=== PATIENT | female | born 1950 | race Two or more races ===

== ENCOUNTER 2017-08-15 20:01 | Emergency (ER) | payer OTHER ==
[~2017-08-15] VITALS: Ht 149.9 cm; Wt 49.4 kg
[2017-08-15 20:56] LABS: Basophils # (auto) 0.1 uL; Basophils % (auto) 0.8 % (0.0-2.0); Eosinophils # (auto) 0.1 uL; Eosinophils % (auto) 1.1 % (0.0-7.0); Hematocrit 41.3 % (36.0-46.0); Hemoglobin 14.4 g/dL (12.2-16.2); Lymphocytes # (auto) 2.4 uL; Lymphocytes % (auto) 36.1 % (10.0-50.0); Mean Corpuscular Hemoglobin 31.7 pg (28.0-32.0); Mean Corpuscular Hgb Conc. 34.9 g/dL (32.0-36.0); Mean Corpuscular Volume 90.7 fL (80.0-100.0); Mean Platelet Volume 6.6 fL (6.9-10.8); Monocytes # (auto) 0.5 uL; Monocytes % (auto) 7.1 % (0.0-12.0); Neutrophils # (auto) 3.7 uL; Neutrophils % (auto) 54.9 % (37.0-80.0); Nucleated Red Blood Cells % 0.1 %; Platelet Count (auto) 245 10^3/uL (140-450); Red Cell Distribution Width 12.4 % (11.8-14.3); White Blood Cell 6.8 10^3/uL (4.4-10.8)
[2017-08-15 21:12] LABS: Urine Bilirubin Negative (Negative); Urine Blood 1+ /uL (Negative); Urine Color Yellow (Yellow); Urine Glucose 4+ mg/dL (Normal); Urine Ketone Negative (Negative); Urine Nitrite Negative (Negative); Urine RBC 2 /hpf (0 - 4); Urine Squamous Epithelial Cell FEW /hpf (<5); Urine Urobilinogen Normal (Negative); Urine pH 6.5 (5.0-8.0)
[2017-08-15 21:23] LABS: Albumin 3.5 g/dL (3.4-5.0); BUN/Creatinine Ratio 14.5; Bilirubin, Total 0.5 mg/dL (0.2-1.0); Calcium 8.7 mg/dL (8.5-10.1); Potassium 4.1 mmol/L (3.5-5.1); Total Protein 7.6 g/dL (6.4-8.2)
[2017-08-16] MEDS ORDERED: HYDROmorphone HCL 2 MG/ML VL IV ONE (04:30)
[2017-08-16] MEDS ORDERED: ONDANSETRON HCL 4 MG/2 ML VIAL IV ONE (04:30)
[2017-08-16] MEDS ORDERED: SODIUM CHLORIDE 0.9% 1,000 ML IV ONE (04:45)
[2017-08-16 07:51] VITALS: BP 126/77
== END 2017-08-16 08:59 | disposition home or self-care (01) ==
LOC: ER 20:01
DX: N39.0 Urinary tract infection, site not specified (principal); R33.9 Retention of urine, unspecified; E11.9 Type 2 diabetes mellitus without complications; E78.5 Hyperlipidemia, unspecified; Z90.49 Acquired absence of other specified parts of digestive tract
CPT/HCPCS: 36415; 51702; 74176; 80053; 81001; 85025; 96361; 96374; 96375; 99285; J7030

== ENCOUNTER → 2022-07-03 | Outpatient (CLI) | payer OTHER ==
[2022-07-03 08:12] LABS: Basophils # (auto) 0 10 ^3/uL (0-0.2); Basophils % (auto) 0.6 % (0.0-2.0); Eosinophils # (auto) 0.1 10 ^3/uL (0-0.8); Eosinophils % (auto) 1.2 % (0.0-7.0); Hematocrit 38.6 % (36.0-46.0); Hemoglobin 13.5 g/dL (12.2-16.2); Lymphocytes # (auto) 1.8 10 ^3/uL (0.4-5.4); Lymphocytes % (auto) 33.4 % (10.0-50.0); Mean Corpuscular Hemoglobin 31.3 pg (28.0-32.0); Mean Corpuscular Volume 89.6 fL (80.0-100.0); Monocytes # (auto) 0.4 10 ^3/uL (0-1.3); Monocytes % (auto) 8.4 % (0.0-12.0); Neutrophils % (auto) 56.4 % (37.0-80.0); Nucleated Red Blood Cells % 0.1 %; Red Blood Cells 4.31 10^6/uL (4.0-5.20); Red Cell Distribution Width 12.4 % (11.8-14.3); White Blood Cell 5.3 10^3/uL (4.4-10.8)
[2022-07-03 08:16] LABS: Urine Bacteria NONE SEEN /hpf (None Seen); Urine Blood Negative /uL (Negative); Urine Specific Gravity 1.009 (1.001-1.035); Urine WBC 1 /hpf (0 - 5)
[2022-07-03 08:31] LABS: Protein, Urine 6.5 mg/dL (0.0-11.9)
[2022-07-03 08:33] LABS: Albumin 3.6 g/dL (3.4-5.0); Calcium 8.7 mg/dL (8.5-10.1)
[2022-07-03 08:39] LABS: Bilirubin, Total 0.5 mg/dL (0.2-1.0); Total Protein 6.8 g/dL (6.4-8.2)
== END | disposition home or self-care (01) ==
LOC: LAB 07:47
PROVIDERS: ATTEND Student in an Organized Health Care Education/Training Program
DX: E11.9 Type 2 diabetes mellitus without complications (principal); I10 Essential (primary) hypertension; E03.8 Other specified hypothyroidism
CPT/HCPCS: 36415; 80053; 80061; 81001; 82570; 83036; 84156; 84439; 84443; 85025

== ENCOUNTER → 2022-10-03 | Outpatient (CLI) | payer OTHER ==
[2022-10-03 08:00] LABS: Basophils # (auto) 0 10 ^3/uL (0-0.2); Basophils % (auto) 0.6 % (0.0-2.0); Eosinophils # (auto) 0 10 ^3/uL (0-0.8); Eosinophils % (auto) 0.4 % (0.0-7.0); Hematocrit 40.6 % (36.0-46.0); Hemoglobin 13.8 g/dL (12.2-16.2); Lymphocytes % (auto) 41.6 % (10.0-50.0); Mean Corpuscular Hemoglobin 31.4 pg (28.0-32.0); Mean Corpuscular Hgb Conc. 34.1 g/dL (32.0-36.0); Monocytes # (auto) 0.4 10 ^3/uL (0-1.3); Monocytes % (auto) 7.3 % (0.0-12.0); Neutrophils # (auto) 2.4 10 ^3/uL (1.6-8.6); Neutrophils % (auto) 50.1 % (37.0-80.0); Red Blood Cells 4.41 10^6/uL (4.0-5.20); Red Cell Distribution Width 12.7 % (11.8-14.3); White Blood Cell 4.8 10^3/uL (4.4-10.8)
[2022-10-03 08:21] LABS: Albumin 3.7 g/dL (3.4-5.0); Calcium 9.9 mg/dL (8.5-10.1); Potassium 4.3 mmol/L (3.5-5.1)
[2022-10-03 08:27] LABS: BUN/Creatinine Ratio 13.5; Bilirubin, Total 0.6 mg/dL (0.2-1.0); Total Protein 7.1 g/dL (6.4-8.2)
[2022-10-03 08:30] LABS: Urine Bacteria NONE SEEN /hpf (None Seen); Urine Blood Negative /uL (Negative); Urine Specific Gravity 1.011 (1.001-1.035); Urine WBC 1 /hpf (0 - 5)
== END | disposition home or self-care (01) ==
LOC: LAB 07:38
PROVIDERS: ATTEND Student in an Organized Health Care Education/Training Program
DX: E11.9 Type 2 diabetes mellitus without complications (principal); I10 Essential (primary) hypertension
CPT/HCPCS: 36415; 80053; 80061; 81001; 83036; 84443; 85025

== ENCOUNTER → 2023-03-01 | Outpatient (CLI) | payer OTHER ==
[2023-03-01 08:42] LABS: Urine Bacteria NONE SEEN /hpf (None Seen); Urine Blood Negative /uL (Negative); Urine Specific Gravity 1.014 (1.001-1.035); Urine WBC <1 /hpf (0 - 5)
[2023-03-01 09:04] LABS: Potassium 4.1 mmol/L (3.5-5.1)
[2023-03-01 09:07] LABS: BUN/Creatinine Ratio 15.9 (10.0-20.0); Calcium 9.2 mg/dL (8.5-10.1); Uric Acid 5.2 mg/dL (2.6-6.0)
== END | disposition home or self-care (01) ==
LOC: LAB 08:09
PROVIDERS: ATTEND Student in an Organized Health Care Education/Training Program
DX: E11.9 Type 2 diabetes mellitus without complications (principal); M25.50 Pain in unspecified joint
CPT/HCPCS: 36415; 80048; 81001; 83036; 84550; 86038; 86431

== ENCOUNTER 2023-05-17 06:13 | Day surgery (SDC) | payer OTHER, MEDICAID ==
[2023-05-16 10:57] LABS: Basophils # (auto) 0 10 ^3/uL (0-0.2); Basophils % (auto) 0.3 % (0.0-2.0); Eosinophils # (auto) 0 10 ^3/uL (0-0.8); Eosinophils % (auto) 0.4 % (0.0-7.0); Hematocrit 41.7 % (36.0-46.0); Hemoglobin 14.4 g/dL (12.2-16.2); Lymphocytes # (auto) 2.8 10 ^3/uL (0.4-5.4); Mean Corpuscular Hgb Conc. 34.6 g/dL (32.0-36.0); Mean Corpuscular Volume 92.4 fL (80.0-100.0); Monocytes # (auto) 0.5 10 ^3/uL (0-1.3); Monocytes % (auto) 7.6 % (0.0-12.0); Neutrophils # (auto) 3.3 10 ^3/uL (1.6-8.6); Neutrophils % (auto) 49.7 % (37.0-80.0); Nucleated Red Blood Cells % 0.2 %; Red Blood Cells 4.51 10^6/uL (4.0-5.20); Red Cell Distribution Width 12.7 % (11.8-14.3); White Blood Cell 6.7 10^3/uL (4.4-10.8)
[2023-05-16 11:19] LABS: Urine Bacteria NONE SEEN /hpf (None Seen); Urine Blood Negative /uL (Negative); Urine Clarity Clear (Clear); Urine Protein, UAD Negative (Negative); Urine Specific Gravity 1.009 (1.001-1.035); Urine Urobilinogen Normal (Negative); Urine WBC <1 /hpf (0 - 5)
[2023-05-16 11:22] LABS: INR 1.01 (0.9-1.15); Partial Thromboplastin Time 25.6 SEC (24.5-34.5); Prothrombin Time 10.6 sec (9.3-11.8)
[2023-05-16 11:23] LABS: Urine Color Yellow (Yellow)
[2023-05-16 11:58] LABS: Potassium 3.6 mmol/L (3.5-5.1)
[2023-05-16 12:11] LABS: Albumin 3.6 g/dL (3.4-5.0); BUN/Creatinine Ratio 16.5 (10.0-20.0); Bilirubin, Total 0.5 mg/dL (0.2-1.0); Total Protein 7.3 g/dL (6.4-8.2)
[~2023-05-17] VITALS: Ht 149.9 cm; Wt 54.4 kg
[~2023-05-17 06:13] MED LIST: ALBUAER3 IN; ATOR20TA50 PO; CHOL200064 PO; FAMO-68 PO; INSLISPI SC; LEVO25TA6 PO; LOSA25TA15 PO; SEMA2INJ3 SC; SUMA50TA2 PO
[2023-05-17] MEDS ORDERED: ceFAZolin 1GM/50ML 50 ML IV ONE (06:34)
[2023-05-17] MEDS ORDERED: LIDOCAINE 1% HCL (LOCAL ANESTH.) INJ 20ML MDV ONE (06:43)
[2023-05-17] MEDS ORDERED: BUPIVACAINE HCL 0.25% P/F 10 ML VIAL ONE (06:43)
[2023-05-17] MEDS ORDERED: SUCCINYLCHOLINE CHLORIDE 20 MG/ML 10ML VIAL IV ONE (06:55)
[2023-05-17] MEDS ORDERED: ROCURONIUM 10MG/ML 10ML VIAL IV ONE (06:55)
[2023-05-17] MEDS ORDERED: fentaNYL CITRATE 100 MCG/2 ML VL ONE (06:59)
[2023-05-17] MEDS ORDERED: PROPOFOL 10 MG/ML 20 ML IV ONE (06:59)
[2023-05-17] MEDS ORDERED: MIDAZOLAM HCL 2MG/2ML 2ml VIAL (1mg/ml) ONE (06:59)
[2023-05-17] MEDS ORDERED: ONDANSETRON HCL 4 MG/2 ML VIAL ONE (06:59)
[2023-05-17] MEDS ORDERED: SODIUM CHLORIDE LOCK 10 ML ONE (06:59)
[2023-05-17] MEDS ORDERED: MORPHINE SULFATE INJ 2 MG/ml SYRG IV PRN (07:15)
[2023-05-17] MEDS ORDERED: ACCU-CHEK COMFORT CURVE STRIP VI ONE (07:15)
[2023-05-17] MEDS ORDERED: METOCLOPRAMIDE HCL 5MG/ml INJ 2ml VIAL IV PRN (07:15)
[2023-05-17] MEDS ORDERED: HYDROmorphone HCL 2 MG/ML VL/or syr IV PRN ×2 (07:15)
[2023-05-17] MEDS ORDERED: HYDR-4798 PO (07:44)
[2023-05-17] MEDS ORDERED: AUG875T PO (07:44)
[2023-05-17 08:48] VITALS: PULSE 74; RESP 10; TEMP 97.2; O2SAT 96
[2023-05-17 10:00] VITALS: BP 137/69; PULSE 96; RESP 45; O2SAT 96
== END 2023-05-17 10:00 | disposition home or self-care (01) ==
LOC: SUR 06:13
PROVIDERS: ATTEND Student in an Organized Health Care Education/Training Program
DX: M20.11 Hallux valgus (acquired), right foot (principal); M89.9 Disorder of bone, unspecified; E11.9 Type 2 diabetes mellitus without complications
CPT/HCPCS: 28104; 36415; 73620; 76000; 80053; 81001; 82962; 85025; 85610; 85730; J0330; J0690; J2001; J2250; J2405; J2704; J3010; J3490

== ENCOUNTER → 2023-08-08 | Outpatient (CLI) | payer OTHER, MEDICAID ==
[~2023-08-08] MED LIST changes: +AUG875T PO; +HYDR-4798 PO
[2023-08-08 07:56] LABS: Basophils # (auto) 0 10 ^3/uL (0-0.2); Basophils % (auto) 0.8 % (0.0-2.0); Eosinophils # (auto) 0.1 10 ^3/uL (0-0.8); Hematocrit 41.5 % (36.0-46.0); Hemoglobin 14.2 g/dL (12.2-16.2); Lymphocytes # (auto) 2.1 10 ^3/uL (0.4-5.4); Lymphocytes % (auto) 38.7 % (10.0-50.0); Mean Corpuscular Hemoglobin 31.8 pg (28.0-32.0); Mean Corpuscular Hgb Conc. 34.3 g/dL (32.0-36.0); Mean Corpuscular Volume 92.8 fL (80.0-100.0); Monocytes # (auto) 0.5 10 ^3/uL (0-1.3); Monocytes % (auto) 9.1 % (0.0-12.0); Neutrophils # (auto) 2.7 10 ^3/uL (1.6-8.6); Neutrophils % (auto) 49.4 % (37.0-80.0); Nucleated Red Blood Cells % 0.1 %; Red Blood Cells 4.48 10^6/uL (4.0-5.20); Red Cell Distribution Width 12.5 % (11.8-14.3); White Blood Cell 5.5 10^3/uL (4.4-10.8)
[2023-08-08 08:16] LABS: Urine Bacteria NONE SEEN /hpf (None Seen); Urine Blood Negative /uL (Negative); Urine Clarity Clear (Clear); Urine Color Yellow (Yellow); Urine Protein, UAD Negative (Negative); Urine Specific Gravity 1.016 (1.001-1.035); Urine Urobilinogen Normal (Negative); Urine WBC 1 /hpf (0 - 5); Urine pH 5.5 (5.0-8.0)
[2023-08-08 08:27] LABS: Alanine Aminotransferase 30 U/L (7-40); Albumin 4.5 g/dL (3.2-4.8); Alkaline Phosphatase 79 U/L (46-116); Anion Gap 7 (5-15); Aspartate Aminotransferase 28 U/L (13-40); Bilirubin, Total 0.6 mg/dL (0.2-1.0); Blood Urea Nitrogen 7 mg/dL (9-23); Calcium 9.8 mg/dL (8.5-10.1); Carbon Dioxide 30 mmol/L (20-30); Chloride 103 mmol/L (98-107); Glucose 149 mg/dL (74-106); Potassium 4.4 mmol/L (3.5-5.1); Sodium 140 mmol/L (136-145); Total Protein 7.2 g/dL (5.7-8.2)
== END | disposition home or self-care (01) ==
LOC: LAB 07:46
PROVIDERS: ATTEND Student in an Organized Health Care Education/Training Program
DX: I10 Essential (primary) hypertension (principal); E11.9 Type 2 diabetes mellitus without complications
CPT/HCPCS: 36415; 80053; 81001; 83036; 85025

== ENCOUNTER → 2023-11-15 | Outpatient (CLI) | payer OTHER, MEDICAID ==
[2023-11-15 08:17] LABS: Basophils # (auto) 0 10 ^3/uL (0-0.2); Basophils % (auto) 0.6 % (0.0-2.0); Eosinophils # (auto) 0 10 ^3/uL (0-0.8); Eosinophils % (auto) 0.2 % (0.0-7.0); Hematocrit 45.3 % (36.0-46.0); Hemoglobin 15.3 g/dL (12.2-16.2); Lymphocytes # (auto) 2.3 10 ^3/uL (0.4-5.4); Lymphocytes % (auto) 31.3 % (10.0-50.0); Mean Corpuscular Hemoglobin 31.3 pg (28.0-32.0); Mean Corpuscular Hgb Conc. 33.8 g/dL (32.0-36.0); Mean Corpuscular Volume 92.4 fL (80.0-100.0); Monocytes # (auto) 0.5 10 ^3/uL (0-1.3); Monocytes % (auto) 6.5 % (0.0-12.0); Neutrophils # (auto) 4.5 10 ^3/uL (1.6-8.6); Neutrophils % (auto) 61.4 % (37.0-80.0); Nucleated Red Blood Cells % 0.1 %; White Blood Cell 7.4 10^3/uL (4.4-10.8)
[2023-11-15 08:29] LABS: Urine Bacteria NONE SEEN /hpf (None Seen); Urine Blood Negative /uL (Negative); Urine Clarity Clear (Clear); Urine Color Yellow (Yellow); Urine Protein, UAD Negative (Negative); Urine Specific Gravity 1.018 (1.001-1.035); Urine Urobilinogen Normal (Negative); Urine WBC <1 /hpf (0 - 5)
[2023-11-15 08:41] LABS: Alanine Aminotransferase 24 U/L (7-40); Albumin 4.6 g/dL (3.2-4.8); Alkaline Phosphatase 77 U/L (46-116); Anion Gap 5 (5-15); Aspartate Aminotransferase 28 U/L (13-40); Blood Urea Nitrogen 10 mg/dL (9-23); Calcium 9.9 mg/dL (8.5-10.1); Carbon Dioxide 29 mmol/L (20-30); Chloride 106 mmol/L (98-107); Glucose 114 mg/dL (74-106); LDL Cholesterol 45 mg/dL (< 100); Potassium 4.2 mmol/L (3.5-5.1); Sodium 140 mmol/L (136-145); Triglycerides 190 mg/dL (< 150)
[2023-11-15 08:42] LABS: Bilirubin, Total 0.6 mg/dL (0.2-1.0); Cholesterol 120 mg/dL (< 200); HDL Cholesterol 51 mg/dL (40-59); Total Protein 7.3 g/dL (5.7-8.2)
== END | disposition home or self-care (01) ==
LOC: LAB 08:00
PROVIDERS: ATTEND Student in an Organized Health Care Education/Training Program
DX: I12.9 Hypertensive chronic kidney disease with stage 1 through stage 4 chronic kidney disease, or unspecified chronic kidney disease (principal); N18.2 Chronic kidney disease, stage 2 (mild); E78.5 Hyperlipidemia, unspecified
CPT/HCPCS: 36415; 80053; 80061; 81001; 82306; 83036; 84439; 84443; 85025

== ENCOUNTER → 2024-03-12 | Outpatient (CLI) | payer OTHER, MEDICAID ==
[~2024-03-12] MED LIST changes: +LOSA-533 PO; -LOSA25TA15 PO
[2024-03-12 08:00] LABS: Triglycerides 148 mg/dL (< 150)
[2024-03-12 08:01] LABS: LDL Cholesterol 59 mg/dL (< 100)
[2024-03-12 08:02] LABS: Cholesterol 143 mg/dL (< 200); HDL Cholesterol 61 mg/dL (40-59)
== END | disposition home or self-care (01) ==
LOC: LAB 07:24
PROVIDERS: ATTEND Student in an Organized Health Care Education/Training Program
DX: I10 Essential (primary) hypertension (principal)
CPT/HCPCS: 36415; 80061

== ENCOUNTER → 2024-10-30 | Outpatient (CLI) | payer MEDICAID ==
[2024-10-30 08:50] LABS: Urine Bacteria None Seen /hpf (None Seen)
[2024-10-30 09:44] LABS: Basophils # (auto) 0 10 ^3/uL (0-0.2); Basophils % (auto) 0.6 % (0.0-2.0); Eosinophils # (auto) 0 10 ^3/uL (0-0.8); Eosinophils % (auto) 0.4 % (0.0-7.0); Hemoglobin 14.1 g/dL (12.2-16.2); Lymphocytes % (auto) 39.9 % (10.0-50.0); Mean Corpuscular Hemoglobin 31.9 pg (28.0-32.0); Mean Corpuscular Hgb Conc. 34.3 g/dL (32.0-36.0); Monocytes # (auto) 0.4 10 ^3/uL (0-1.3); Monocytes % (auto) 7.1 % (0.0-12.0); Neutrophils # (auto) 2.6 10 ^3/uL (1.6-8.6); Nucleated Red Blood Cells % 0.1 %; Platelet Count (auto) 234 10^3/uL (140-450); Red Cell Distribution Width 12.3 % (11.8-14.3); White Blood Cell 4.9 10^3/uL (4.4-10.8)
[2024-10-30 09:57] LABS: Urine Blood Negative /uL (Negative); Urine Clarity Clear (Clear); Urine Color Light-Yellow (Yellow); Urine Protein, UAD Negative (Negative); Urine Specific Gravity 1.014 (1.001-1.035); Urine Squamous Epithelial Cell FEW /hpf (<5); Urine Urobilinogen Normal (Negative); Urine WBC 1 /HPF (0-5)
[2024-10-30 10:09] LABS: Alanine Aminotransferase 18 U/L (7-40); Albumin 4.5 g/dL (3.2-4.8); Anion Gap 7 (5-15); BUN/Creatinine Ratio 14.5 (10.0-20.0); Blood Urea Nitrogen 12 mg/dL (9-23); Calcium 9.9 mg/dL (8.7-10.4); Carbon Dioxide 28 mmol/L (20-31); Glucose 95 mg/dL (74-106); LDL Cholesterol 53 mg/dL (< 100); Sodium 142 mmol/L (136-145); Triglycerides 136 mg/dL (< 150)
[2024-10-30 10:10] LABS: Aspartate Aminotransferase 19 U/L (13-40); Cholesterol 133 mg/dL (< 200)
[2024-10-30 10:11] LABS: Bilirubin, Total 0.6 mg/dL (0.2-1.0); HDL Cholesterol 60 mg/dL (40-59); Total Protein 6.7 g/dL (5.7-8.2)
[2024-10-30 10:12] LABS: Alkaline Phosphatase 42 U/L (46-116); Chloride 107 mmol/L (98-107)
[2024-10-30 11:18] LABS: Creatinine, Urine 74.11 mg/dL (30.0-125.0)
[2024-10-30 11:20] LABS: Micro Albumin < 3.0 mg/L (<30.0); Microalb/Creat Ratio, Urine < 4.00
== END | disposition home or self-care (01) ==
LOC: LAB 08:38
PROVIDERS: ATTEND Student in an Organized Health Care Education/Training Program
DX: E11.9 Type 2 diabetes mellitus without complications (principal); I10 Essential (primary) hypertension; E55.9 Vitamin D deficiency, unspecified
CPT/HCPCS: 36415; 80053; 80061; 81001; 82043; 82306; 82570; 83036; 84443; 85025

== ENCOUNTER 2024-12-31 16:34 | Inpatient (IN) | payer MEDICAID ==
[~2024-12-31] VITALS: Ht 149.9 cm; Wt 54.5 kg
--- NOTE | 2024-12-31 17:21 | ED.PDOC ---
Back pain HPI HPI Comments 74-year-old female presents to the ED chief complaint acute on chronic low back pain. Patient states symptoms started 2 weeks ago has been taking her naproxen as prescribed with little relief. Complaining of lower mid center back pain. Sharp shooting in nature 8/10 on pain scale radiates around into her abdomen and pelvis. She reports no new injury. He denies numbness, weakness, loss of bowel or bladder control or saddle anesthesia. Chief Complaint: Back Pain Time Seen by MD: 17:03 Primary Care Provider: TREVOR Hall Notes: Nurses Notes, Medications, Allergies Allergies: Coded Allergies: NO KNOWN ALLERGIES (Unverified , 08/15/17) Home Meds Active Scripts Hydrocodone-Acetaminophen (Hydrocodone Bitartrate/AC 10-325 mg) 1 Tab Tab, 1 TAB PO Q8HR for 7 Days, #21 TAB Prov:ROMY TIRADO DPM 05/17/23 Amoxicillin & Pot Clavulanate (AUGMENTIN TABLET) 875 Mg Tb, 875 MG PO BID for 7 Days, #14 TAB Prov:ROMY TIRADO DPM 05/17/23 Reported Medications Albuterol Sulfate (VENTOLIN MDI) 90 Mcg Ih, 90 MCG IN PRN, INH 05/16/23 Famotidine (Gnp Acid Locomotive Crane Operator Maximum) 20 Mg Tab, 20 MG PO DAILY, TAB 05/16/23 Cholecalciferol (D3 2000) 2,000 Unit Cap, 2000 UNIT PO DAILY, CAP 05/16/23 Sumatriptan Succinate (Imitrex) 50 Mg Tab, 25 MG PO UD, TAB 05/16/23 Semaglutide (Ozempic) 2 Mg/3 Ml Inj, 1 MG SC QWEEKLY, INJ 05/16/23 Losartan Potassium (Losartan Potassium) 25 Mg Tab, 25 MG PO DAILY, TAB 05/16/23 Levothyroxine Sodium (Levothyroxine Sodium) 25 Mcg Tab, 25 MCG PO DAILY, TAB 05/16/23 Atorvastatin Calcium (ATORVASTATIN CALCIUM) 20 Mg Tab, 20 MG PO DAILY, TAB 05/16/23 Insulin Lispro (Human) (Humalog) 100 Unit/Ml Inj, 20 UNIT SC BID, INJ 05/16/23 Information Source: Patient Mode of Arrival: Ambulatory Past Medical History PAST MEDICAL HISTORY: DM, High Lipids Surgical History: Denies all surgeries LIEUTENANT BALLISTICS History: No Pertinent LIEUTENANT BALLISTICS History Family History Family History: Unknown Social History Smoker: Non-Smoker Alcohol: Denies ETOH Use Drugs: Denies Drug Use Lives In: Home Constitutional: denies: chills, diaphoresis, fatigue, fever, malaise, sweats, weakness, others EENTM: denies: blurred vision, double vision, ear bleeding, ear discharge, ear drainage, ear pain, ear ringing, eye pain, eye redness, hearing loss, mouth pain , mouth swelling, nasal discharge, nose bleeding, nose congestion, nose pain, photophobia, tearing, throat pain, throat swelling, voice changes, others Respiratory: denies: cough, hemoptysis, orthopnea, SOB at rest, shortness of breath, SOB with excertion, stridor, wheezing, others Cardiovascular: denies: chest pain, dizzy spells, diaphoresis, Dyspnea on exertion, edema, irregular heart beat, left arm pain, lightheadedness, palpitations, PND, syncope, others Gastrointestinal: denies: abdomen distended, abdominal pain, blood streaked bowels, constipated, diarrhea, dysphagia, difficulty swallowing, hematemesis, melena, nausea, poor appetite, poor fluid intake, rectal bleeding, rectal pain, vomiting, others Genitourinary: denies: abnormal vagina bleeding, burning, dyspareunia, dysuria, flank pain, frequency, hematuria, incontinence, pain, , vagina discharge, urgency, others Neurological: denies: dizziness, fainting, headache, left sided numbness, left sided weakness, numbness, paresthesia, pre-existing deficit, right sided numbness, right sided weakness, seizure, speech problems, tingling, tremors, weakness, others Musculoskeletal: reports: back pain; denies: gout, joint pain, joint swelling, muscle pain, muscle stiffness, neck pain, others Integumetry: denies: bruises, change in color, change in hair/nails, dryness, laceration, lesions, lumps, rash, wounds, others Allergic/Immunocompromised: denies: Difficulty Healing, Frequent Infections, Hives, Itching, others Hematologic/Lymphatic: denies: anemia, blood clots, easy bleeding, easy bruising, swollen glands, others Psychiatric: denies: anxiety, bipolar disorder, depression, hopeless, panic disorder, schizophrenia, sleepless, suicidal, others Physical Exam General Appearance: No Apparent Distress, Normal HEENT: Pharynx Normal Neck: Full Range of Motion, Non-Tender Respiratory: Lungs Clear, No Respiratory Distress, Normal Breath Sounds Cardiovascular: No Edema, No JVD, No Murmur, No Gallop, Normal Peripheral Pulses, Regular Rate/Rhythm Breast Exam: Deferred Gastrointestinal: No Organomegaly, Non Tender, No Pulsatile Mass, Normal Bowel Sounds, Soft Genitalia: Deferred Pelvic: Deferred Rectal: Deferred Extremities: Normal capillary refill, Normal inspection, Normal range of motion, Non-tender, No pedal edema Musculoskeletal : Location: Bilateral Extremity Location: Back (Moderate tenderness palpated through L2 through L5 lumbar spine without crepitus or step-offs. Moderate tenderness and muscle spasms L1 through L5 left side paraspinal muscles. Negative straight leg bilateral. Strength sensory and motion intact positive pedal pulses) Apperance: Normal Neurologic: Alert, subassembly assembler II-XII nml as Tested, No Motor Deficits, Normal Affect, Normal Mood, No Sensory Deficits Cerebellar Function: Normal Reflexes: Normal Skin: Dry, Normal Color, Warm Lymphatic: No Adenopathy Was a procedure done? Was a procedure done?: No Back Pain Differential Dx Differential Diagnosis: Fracture, Musculoskeletal Pain, Strain X-Ray, Labs, Meds, VS Vital Signs Date Time Temp Pulse Resp B/P (MAP) Pulse Ox O2 Delivery O2 Flow Rate FiO2 12/31/24 19:36 80 16 96 Room Air* 0 21 12/31/24 19:36 98.2 84 18 140/76 (97) 96 98.2 12/31/24 16:48 98.1 84 16 145/64 (91) 96 98.1 Lab Test 12/31/24 16:44 Range/Units Urine Color Colorless Yellow Urine Clarity Clear Clear Urine pH 5.5 5.0-9.0 Urine Specific [place] 1.005 1.001-1.035 Urine Protein Negative Negative Urine Ketones Negative Negative Urine Blood Negative Negative /uL Urine Nitrite Negative Negative Urine Bilirubin Negative Negative Urine Urobilinogen Normal Negative mg/dL Urine Leukocyte Esterase Negative Negative /uL Urine RBC 1 0 - 4 /hpf Urine Microscopic WBC < 1 0-5 /HPF Urine Squamous Epithelial Cells None seen <5 /hpf Urine Bacteria None seen None Seen /hpf Urine Glucose Normal Normal mg/dL Current Medications Medications (Trade) Dose Ordered Sig/Antwan Route Start Time Stop Time Status Last Admin Ketorolac Tromethamine (Toradol Injection) 30 mg ONCE ONCE IM 12/31/24 17:30 12/31/24 17:31 DC 12/31/24 19:35 Dexamethasone Sodium Phosphate (Decadron Injection) 10 mg ONCE ONCE IM 12/31/24 17:30 12/31/24 17:31 DC 12/31/24 19:34 Acetaminophen/ Hydrocodone Bitart ([place] 5/325MG Tab) 1 tab ONCE ONCE PO 12/31/24 17:30 12/31/24 17:31 DC 12/31/24 19:35 X-Ray, Labs, Meds, VS Comment CT lumbar spine results show L5-S1 disc protrusion. Patient continues with moderate to severe pain. Reports radiation into her lower abdomen and pelvic area. She was given Toradol 30 mg IM [place] 5 mg p.o. and Decadron 10 mg IM. We will start an IV and trial morphine. Patient placed for admission for the hospitalist and [facility] for consult in a.m. and MRI lumbar spine. Time of 1ST Reevaluation: 19:21 Reevaluation 1ST: Unchanged Patient Education/Counseling: Diagnosis, Treatment, Prognosis, Need For Follow Up Family Education/Counseling: Diagnosis, Treatment Departure 1 Departure Time of Disposition: 19:21 Impression: Primary Impression: Lumbar radiculopathy Additional Impression: Herniated nucleus pulposus, L5-S1 Disposition: 09 ADMITTED INPATIENT Condition: Stable Discharged With: Spouse Critical Care Note Critical Care Time?: No Stability Stability form required: LUIS A Toussaint Dec 31, 2024 17:21
[2024-12-31 17:57] LABS: Urine Bacteria None Seen /hpf (None Seen)
--- NOTE | 2024-12-31 18:11 | DVH ---
CT LS SPINE WO CONTRAST Date: 12/31/2024 05:29 PM History: LOW BACK PAIN/RADICULOPATHY Comparison: None TECHNIQUE: Multiple axial CT images of the lumbosacral spine were obtained using bone algorithm. Axial and coron al reformatting was done. Bone and soft tissue windows were reviewed. Radiation Dose Information: CT Dose: CTDI volume is 24.39 mGy. Dose-length product is 716.29 mGy*cm FINDINGS: No CT evidence of definite acute fracture, spinal dislocation, or significant appearing acute subluxa tion is seen. The visualized paraspinal soft tissues are grossly unremarkable. T12-L1 There is no evidence of central spinal canal or neuroforaminal stenosis. L1-L2 There is no evidence of central spinal canal or neuroforaminal stenosis. L2-L3 There is no evidence of central spinal canal or neuroforaminal stenosis. L3-L4 There is no evidence of central spinal canal or neuroforaminal stenosis. L4-L5 There is no evidence of central spinal canal or neuroforaminal stenosis. L5-S1 There is no evidence of central spinal canal or neuroforaminal stenosis. IMPRESSION: 1. No definite CT evidence of acute fracture or dislocation of the bony lumbar spine. 2. No bulging disc no protruding disc or central spinal canal stenosis. 3. All CT scans at this medical facility are performed using dose modulation techniques as appropriate to a performed exam including the following: Automated exposure control was utilized; adjustment of t he MA and/or KV according to patient size; and use of iterative reconstruction technique. HS:Y
[2024-12-31 18:15] LABS: Urine Blood Negative /uL (Negative); Urine Clarity Clear (Clear); Urine Color Colorless (Yellow); Urine Protein, UAD Negative (Negative); Urine Specific Gravity 1.005 (1.001-1.035); Urine Squamous Epithelial Cell None Seen /hpf (<5); Urine Urobilinogen Normal (Negative); Urine pH 5.5 (5.0-9.0)
[2024-12-31 18:20] LABS: Urine WBC < 1 /HPF (0-5)
[2024-12-31] MEDS: DexAMETHasone SOD PHOS 10MG/1ML VIAL INJ IM ONE (19:34)
[2024-12-31] MEDS: KETOROLAC TROMETH 60MG/2ML VIAL IM ONE (19:35)
[2024-12-31] MEDS: HYDROcodone-ACET 5/325MG TAB PO ONE (19:35)
[2024-12-31 19:36] VITALS: PULSE 80; RESP 16; O2SAT 96
[2025-01-01] VITALS (8 sets, daily range): BP systolic 109–139; BP diastolic 52–83; PULSE 71–101; RESP 15–18; TEMP 97.5–98.2; O2SAT 92–95
[2025-01-01] MEDS ORDERED: NITROGLYCERIN 0.4 MG SL TAB SL PRN (02:30)
[2025-01-01] MEDS ORDERED: MORPHINE SULFATE INJ 2 MG/ml SYRG IV PRN (02:30)
[2025-01-01 02:57] LABS: Basophils # (auto) 0 10 ^3/uL (0-0.2); Basophils % (auto) 0.3 % (0.0-2.0); Eosinophils # (auto) 0 10 ^3/uL (0-0.8); Eosinophils % (auto) 0.1 % (0.0-7.0); Hematocrit 39.4 % (36.0-46.0); Lymphocytes # (auto) 1.2 10 ^3/uL (0.4-5.4); Lymphocytes % (auto) 20.6 % (10.0-50.0); Mean Corpuscular Hemoglobin 32.4 pg (28.0-32.0); Mean Corpuscular Hgb Conc. 35.6 g/dL (32.0-36.0); Monocytes # (auto) 0 10 ^3/uL (0-1.3); Monocytes % (auto) 0.7 % (0.0-12.0); Neutrophils # (auto) 4.5 10 ^3/uL (1.6-8.6); Neutrophils % (auto) 78.3 % (37.0-80.0); Nucleated Red Blood Cells % 0.1 %; Platelet Count (auto) 223 10^3/uL (140-450); Red Blood Cells 4.32 10^6/uL (4.0-5.20); Red Cell Distribution Width 12.6 % (11.8-14.3); White Blood Cell 5.7 10^3/uL (4.4-10.8)
[2025-01-01 03:13] LABS: Alanine Aminotransferase 26 U/L (7-40); Albumin 4.6 g/dL (3.2-4.8); Alkaline Phosphatase 60 U/L (46-116); Anion Gap 9 (5-15); Aspartate Aminotransferase 24 U/L (13-40); BUN/Creatinine Ratio 24.3 (10.0-20.0); Blood Urea Nitrogen 17 mg/dL (9-23); Calcium 9.7 mg/dL (8.7-10.4); Carbon Dioxide 24 mmol/L (20-31); Creatine Kinase IFCC 105 U/L (34-145); Potassium 4.6 mmol/L (3.5-5.1); Sodium 141 mmol/L (136-145)
[2025-01-01 03:14] LABS: Bilirubin, Total 0.5 mg/dL (0.2-1.0); Phosphorus 2.9 mg/dL (2.4-5.1)
[2025-01-01 03:21] LABS: Lactic Acid w/Reflex 2.7 mmol/L (0.4-2.0)
[2025-01-01 03:24] LABS: Chloride 108 mmol/L (98-107); Glucose 228 mg/dL (74-106)
--- NOTE | 2025-01-01 03:34 | DVHHPRES ---
History of Present Illness Resident Creating Document: JAMES SYED RESIDENT Reason for Visit: BACK PAIN History of Present Illness This is a 74-year-old female with a past medical history of diabetes, hypertension, osteoporosis, arthritis and hyperlipidemia presented to the ED with a about 1 month history lower back pain. Per the patient, the pain in the lower the coccygeal region started about a month ago. it was mild and tolerable in the beginning. However, with time, the pain gradually worsen in intensity with radiation to both the left and right hip. Patient then visited her primary care physician and was given naproxen which worked in the beginning but right now the naproxen does not even keep the pain calm and she is constantly in pain. Therefore she presented to the ED for further evaluation. Patient denied trauma, infection, fever or chills or weight loss or night sweat or gait abnormality. She has no problem with urination, but did complained of constipation and headache. Past medical history: diabetes mellitus, hypertension, osteoporosis, arthritis and hyperlipidemia Past surgical history: None Social history: Retired And family history: Noncontributing to her current condition Past Medical History See HPI Past Surgical History See HPI Review of Systems Review of Systems Constitutional: Denies fever no chills no feeling of malaise HEENT: Denies headache, ear pain, ear discharges, conjunctivitis, nasal discharge throat pain Cardiovascular: Denies chest pain, palpitation, orthopnea, PND, or pedal edema Respiratory: Denies shortness of breath, cough cough, sputum production, hemoptysis, GI: Denies abdominal pain, nausea, vomiting, diarrhea, hematemesis, hematochezia, : Denies frequency, urgency, hematuria, Endocrine: Denies unintentional weight gain or weight loss, feeling of hot flashes, Marcial: Denies easy bruising, bleeding disorders, epistaxis Musculoskeletal: coccygeal pains with bilateral hip pain Psych: No evidence of depression, [place], suicidal ideation Allergies: Coded Allergies: NO KNOWN ALLERGIES (Unverified , 08/15/17) Medications Current Medications Medications Dose Ordered Sig/Antwan Route Start Time Stop Time Status Last Admin Dose Admin Nitroglycerin 0.4 mg Q5MINP PRN SL 01/01/25 02:30 Morphine Sulfate 2 mg Q30M PRN IV 01/01/25 02:30 Exam Vital Signs Vital Signs Date Time Temp Pulse Resp B/P (MAP) Pulse Ox O2 Delivery O2 Flow Rate FiO2 12/31/24 19:36 80 16 96 Room Air* 0 21 12/31/24 19:36 98.2 140/76 (97) 98.2 Exam General Appearance: Alert, Oriented X3, Cooperative, No acute distress HEENT: Atraumatic, PERRLA, EOMI, Mucous membrane moist/pink Respiratory: Clear to auscultation, Normal air movement Cardiovascular: Regular rate, Normal S1, Normal S2, No murmurs, no chest wall tenderness Abdominal: NO distention, no tenderness, bowel sounds present, no scars noted Extremities: No clubbing, No cyanosis, No edema, Normal pulses, No tenderness/swelling Skin: No rashes, No breakdown, No significant lesion LOWER BACK: tenderness on lower back.palpable lump felt in the mid lower back Neuro: Normal gait, Normal speech, Strength at 5/5 X4 ext, Normal tone, Sensation intact, Cranial nerves 3-12 NL, Reflexes 2+ Psych/Mental Status: Mental status NL, Mood NL Labs/Xrays Labs Test 01/01/25 02:37 12/31/24 16:44 Range/Units Urine Color Colorless Yellow Urine Clarity Clear Clear Urine pH 5.5 5.0-9.0 Urine Specific [place] 1.005 1.001-1.035 Urine Protein Negative Negative Urine Ketones Negative Negative Urine Blood Negative Negative /uL Urine Nitrite Negative Negative Urine Bilirubin Negative Negative Urine Urobilinogen Normal Negative mg/dL Urine Leukocyte Esterase Negative Negative /uL Urine RBC 1 0 - 4 /hpf Urine Microscopic WBC < 1 0-5 /HPF Urine Squamous Epithelial Cells None seen <5 /hpf Urine Bacteria None seen None Seen /hpf Urine Glucose Normal Normal mg/dL Assessment/Plan Assessment/Plan Assessment Lumbar radiculopathy Diabetes mellitus, A1C 7.2 Arthritis Osteoporosis Hypertension Hypercholesterolemia Lactic acidosis Plan Pain management with Lidocaine patch Ordered for Physical therapy Continue home medication for for diabetes, mild sliding scale Continue home medication for hypertension Get labs for CK, CMP, TSH,and UDS, then resume home medication IV hydration DVT prophylaxix: nne, patient is mobile, not bed bound Diet: Diabetic medication Goal of care discussed for more than 25 minute: Full code Case and plan discussed with Dr. Munoz Plan discussed with: Patient Date of Service: Jan 01, 2025 Billing Provider: BELL MUNOZ MD Common Visit Codes: [id number] INP/OBS CARE (HIGH) Secondary Visit Codes: [id number] CARE PLAN 30 MINUTES JAMES SYED RESIDENT Jan 01, 2025 03:34 BELL MUNOZ MD Jan 01, 2025 11:26
[2025-01-01] MEDS ORDERED: TRAZ-227 PO (03:39)
[2025-01-01] MEDS ORDERED: POLYETHYLENE GLYCOL 17 GM PWDR PO PRN (03:45)
[2025-01-01] MEDS ORDERED: DEXTROSE (50%) 50ML SYRG IV PRN (03:45)
[2025-01-01] MEDS: LACTATED RINGER'S 250 ML IV ONE (03:45)
[2025-01-01] MEDS ORDERED: ALBUTEROL SULF 2.5 MG/0.5ML(0.5%) NEB SOLN NEB PRN (04:00)
[2025-01-01] MEDS: PANTOPRAZOLE 40 MG TAB PO SCH (05:41)
[2025-01-01] MEDS: LEVOTHYROXINE SODIUM 25 MCG TAB PO SCH (05:41)
[2025-01-01] MEDS: InsuLIN REG 1unit/0.01ml Soln (100units/ml) SC SCH (05:41)
[2025-01-01] MEDS: ACCU-CHEK COMFORT CURVE STRIP VI SCH (05:41)
[2025-01-01] MEDS: LACTATED RINGER'S 1,000 ML IV SCH (05:46)
--- NOTE | 2025-01-01 05:49 | DVH ---
EXAM: XY PELVIS AP CLINICAL INDICATION: pain in the midline low pelvis at cocyx area TECHNIQUE: XY PELVIS AP Comparison: None FINDINGS/IMPRESSION: There is no evidence of acute fracture or dislocation. The visualized joint space is well maintained. The alignment is anatomical. There is no radiopaque foreign body.
[2025-01-01] MEDS ORDERED: ESCI10TA PO (06:19)
[2025-01-01] MEDS ORDERED: MELO15TA29 PO (06:19)
[2025-01-01] MEDS ORDERED: FENO145T27 PO (06:19)
[2025-01-01] MEDS ORDERED: NAPR220C PO (06:19)
[2025-01-01 06:21] LABS: Erythrocyte Sedimentation Rate 8 mm/hr (0-20)
[2025-01-01] MEDS: ERGOCALCIFEROL 50,000 UNIT(1.25MG) CAP PO SCH (09:33)
[2025-01-01] MEDS: SODIUM CHLORIDE 0.9% 500 ML IV ONE (09:33)
[2025-01-01] MEDS: ATORVASTATIN 20 MG TAB PO SCH (09:33)
[2025-01-01] MEDS ORDERED: FAMOTIDINE 20 MG TAB PO SCH (10:00)
[2025-01-01 10:15] LABS: Lactic Acid w/Reflex 3.4 mmol/L (0.4-2.0)
--- NOTE | 2025-01-01 14:12 | DVH ---
PROCEDURE: MRI LUMBAR SPINE WO CONTRAST INDICATION: Pain Exam Date: 01/01/2025 01:20 PM COMPARISON: None TECHNIQUE: MRI lumbar spine without intravenous contrast. FINDINGS: Grade 1 anterolisthesis of L5 on S1 with likely bilateral pars defects. There are degenerative endp late changes including modic endplate changes with anterior and lateral osteophytes throughout the sherman mbar spine. The visualized distal spinal cord and conus medullaris are within normal limits. The con us medullaris appears to terminate within normal limits. The visualized retroperitoneal and paraspin al soft tissues are unremarkable. The following axial levels are detailed below: T12-L1: Unremarkable. L1-L2: There is a mild circumferential disc bulge. No significant central canal or neuroforaminal s tenosis. L2-L3: There is a mild circumferential disc bulge. No significant central canal or neuroforaminal s tenosis. L3-L4: There is a mild circumferential disc bulge. No significant central canal or neuroforaminal s tenosis. L4-L5: There is a mild circumferential disc bulge. No significant central canal or neuroforaminal s tenosis. L5-S1: There is a moderate circumferential disc bulge complicated by facet arthropathy associated wi th moderate bilateral neuroforaminal stenosis. No significant central canal stenosis. IMPRESSION: 1. Multilevel degenerative disease. Grade 1 spondylolisthesis L5 on S1 associated with moderate bilat eral neural foraminal stenosis. No significant central canal stenosis. HS:Y
[2025-01-01] MEDS ORDERED: ERGO1CAP23 PO (14:26)
[2025-01-01] MEDS ORDERED: CEL100T PO (14:26)
--- NOTE | 2025-01-01 20:38 | DVHDSRES ---
Discharge Summary Date of Admission Resident Creating Document: GISELL DILLARD RESIDENT Jan 01, 2025 at 02:19 Date of Discharge: Jan 01, 2025 Admitting Diagnosis lumbalgia Labs/Diagnostic Data: Laboratory Results Test 01/01/25 11:25 01/01/25 10:57 01/01/25 02:37 12/31/24 16:44 POC Glucose 226 mg/dl (70-106) Lactic Acid Level 2.6 mmol/L (0.4-2.0) White Blood Count 5.7 10^3/uL (4.4-10.8) Red Blood Count 4.32 10^6/uL (4.0-5.20) Hemoglobin 14.0 g/dL (12.2-16.2) Hematocrit 39.4 % (36.0-46.0) Mean Corpuscular Volume 91.0 fL (80.0-100.0) Mean Corpuscular Hemoglobin 32.4 pg (28.0-32.0) Mean Corpuscular Hemoglobin Concent 35.6 g/dL (32.0-36.0) Red Cell Distribution Width 12.6 % (11.8-14.3) Platelet Count 223 10^3/uL (140-450) Mean Platelet Volume 7.4 fL (6.9-10.8) Neutrophils (%) (Auto) 78.3 % (37.0-80.0) Lymphocytes (%) (Auto) 20.6 % (10.0-50.0) Monocytes (%) (Auto) 0.7 % (0.0-12.0) Eosinophils (%) (Auto) 0.1 % (0.0-7.0) Basophils (%) (Auto) 0.3 % (0.0-2.0) Neutrophils # (Auto) 4.5 10 ^3/uL (1.6-8.6) Lymphocytes # (Auto) 1.2 10 ^3/uL (0.4-5.4) Monocytes # (Auto) 0 10 ^3/uL (0-1.3) Eosinophils # (Auto) 0 10 ^3/uL (0-0.8) Basophils # (Auto) 0 10 ^3/uL (0-0.2) Nucleated Red Blood Cells 0.1 % Erythrocyte Sedimentation Rate 8 mm/hr (0-20) D-Dimer, Quantitative 0.19 mg/L FEU (0.0-0.49) Sodium Level 141 mmol/L (136-145) Potassium Level 4.6 mmol/L (3.5-5.1) Chloride Level 108 mmol/L (98-107) Carbon Dioxide Level 24 mmol/L (20-31) Anion Gap 9 (5-15) Blood Urea Nitrogen 17 mg/dL (9-23) Creatinine 0.70 mg/dL (0.550-1.02) Glomerular Filtration Rate Calc 91 mL/min (>90) BUN/Creatinine Ratio 24.3 (10.0-20.0) Serum Glucose 228 mg/dL (74-106) Hemoglobin A1c 7.2 % A1C (<5.7) Calcium Level 9.7 mg/dL (8.7-10.4) Phosphorus Level 2.9 mg/dL (2.4-5.1) Total Bilirubin 0.5 mg/dL (0.2-1.0) Aspartate Amino Transferase (AST) 24 U/L (13-40) Alanine Aminotransferase (ALT) 26 U/L (7-40) Alkaline Phosphatase 60 U/L (46-116) Creatine Kinase 105 U/L (34-145) C-Reactive Protein High Sensitivity 0.10 mg/dL (<1.0) Total Protein 7.0 g/dL (5.7-8.2) Albumin 4.6 g/dL (3.2-4.8) Lipase 56 U/L (12-53) Thyroid Stimulating Hormone (TSH) 1.54 uIU/mL (0.55-4.78) Urine Color Colorless (Yellow) Urine Clarity Clear (Clear) Urine pH 5.5 (5.0-9.0) Urine Specific [place] 1.005 (1.001-1.035) Urine Protein Negative (Negative) Urine Ketones Negative (Negative) Urine Blood Negative /uL (Negative) Urine Nitrite Negative (Negative) Urine Bilirubin Negative (Negative) Urine Urobilinogen Normal mg/dL (Negative) Urine Leukocyte Esterase Negative /uL (Negative) Urine RBC 1 /hpf (0 - 4) Urine Microscopic WBC < 1 /HPF (0-5) Urine Squamous Epithelial Cells None seen /hpf (<5) Urine Bacteria None seen /hpf (None Seen) Urine Glucose Normal mg/dL (Normal) Other Laboratory Tests 01/01/25 02:37 Brief Hx & Hospital Course: This is a 74-year-old female who presented to the ED with a about 1 month history lower back pain. Past medical history: diabetes mellitus, hypertension, osteoporosis, arthritis and hyperlipidemia Past surgical history: None Social history: denied smoking, drug or alcohol use. Per the patient, the pain in the lower the coccygeal region started about a month ago. it was mild and tolerable in the beginning. However, with time, the pain gradually worsen in intensity with radiation to both the left and right hip. Patient then visited her primary care physician and was given naproxen which worked in the beginning but right now the naproxen does not even keep the pain calm and she is constantly in pain. Therefore she presented to the ED for further evaluation. Patient denied trauma, infection, fever or chills or weight loss or night sweat or gait abnormality. She has no problem with urination, but did complained of constipation and headache. On my initial assessment, patient was seen and examined at bedside. She currently states feeling well, denies any significant shortness of breath, chest pain, abdominal pain, dysuria, nausea, vomiting, diarrhea, constipation, dizziness, lightheadedness. She's currently tolerating diet. Ambulatory. Pelvic x-ray was unremarkable. A CT of the lumbar spine was also unremarkable. We will also order a lumbar MRI which revealed Multilevel degenerative disease. Grade 1 spondylolisthesis L5 on S1 associated with moderate bilateral neural foraminal stenosis. No significant central canal stenosis. We explained this findings comprehensively to the patient, she stated feeling much better than on admission, her back pain had subsided significantly. Physical examination as below: General: Awake, alert, comfortable appearing, in no acute distress. HEENT: Head is normocephalic and atraumatic. Pupils are equal, round, and reactive to light. Extraocular muscles are intact. No nasal discharge. No facial trauma. Intraoral exam shows moist mucous membranes with no tonsillar enlargement or exudate. Neck: Supple with no cervical lymphadenopathy. Heart: Regular rate without murmur, rub, or gallop. Lungs: Equal breath sounds bilaterally with no wheezing, rales, or rhonchi. There is no chest wall tenderness or instability. Abdomen: No external sign of injury. Bowel sounds are present. Abdomen is soft, nontender. No rebound, no guarding, no rigidity. There are no palpable masses. There is no flank pain on exam. Extremities: Strong peripheral pulses. There is no clubbing, no cyanosis, and no edema. Skin: No rash. Neurologic: Cranial nerves II-XII intact without motor, sensory, or cerebellar deficit, no asterixis. Patient will be discharge home, she will continue home medications as prescribed. Patient will continue taking celecoxib as prescribed. She was encouraged to get a referral for physical therapy from the outpatient setting. She will follow-up with PCP in 1-2 weeks. Patient verbalized understanding and agree with the DC plan, we spent over 30 minutes explaining the plan. Case and plan discussed with Dr. Munoz Operations or Procedures [place] [address] Ph: [phone] DIAGNOSTIC IMAGING Diagnostic Imaging Report : [id number] Signed PATIENT: JACKIE DAVIS ACCT: [id number] UNIT: [id number] : 1950 LOC: ER ROOM / BED: / AGE / SEX: 74 / F ADM STATUS: REG ER SERVICE 1704 ORDERING PHYSICIAN: LUIS A DELA CRUZ PROCEDURE(s): LS2CT - LS SPINE WO CONTRAST REASON: LOW BACK PAIN/RADICULOPATHY ORDER NUMBER(s): [id number], ACCESSION NUMBER(s): [id number] CT LS SPINE WO CONTRAST Date: 12/31/2024 05:29 PM History: LOW BACK PAIN/RADICULOPATHY Comparison: None TECHNIQUE: Multiple axial CT images of the lumbosacral spine were obtained using bone algorithm. Axial and coronal reformatting was done. Bone and soft tissue windows were reviewed. Radiation Dose Information: CT Dose: CTDI volume is 24.39 mGy. Dose-length product is 716.29 mGy*cm FINDINGS: No CT evidence of definite acute fracture, spinal dislocation, or significant appearing acute subluxation is seen. The visualized paraspinal soft tissues are grossly unremarkable. T12-L1 There is no evidence of central spinal canal or neuroforaminal stenosis. L1-L2 There is no evidence of central spinal canal or neuroforaminal stenosis. L2-L3 There is no evidence of central spinal canal or neuroforaminal stenosis. L3-L4 There is no evidence of central spinal canal or neuroforaminal stenosis. L4-L5 There is no evidence of central spinal canal or neuroforaminal stenosis. L5-S1 There is no evidence of central spinal canal or neuroforaminal stenosis. IMPRESSION: 1. No definite CT evidence of acute fracture or dislocation of the bony lumbar spine. 2. No bulging disc no protruding disc or central spinal canal stenosis. 3. All CT scans at this medical facility are performed using dose modulation techniques as appropriate to a performed exam including the following: Automated exposure control was utilized; adjustment of the MA and/or KV according to patient size; and use of iterative reconstruction technique. HS:Y ATED BY: ANDERSON ACEVES Jr., DO DICTATED DATE/TIME: 12/31/241808 SIGNED BY: ANDERSON ACEVES Jr., DO SIGNED DATE/TIME: 12/31/241808 CC: [place] [address] Ph: [phone] DIAGNOSTIC IMAGING Diagnostic Imaging Report : [id number] Signed PATIENT: JACKIE DAVIS ACCT: [id number] UNIT: [id number] : 1950 LOC: OVERFLOW ROOM / BED: [address] [place] [address] AGE / SEX: 74 / F ADM STATUS: ADM IN SERVICE 8 ORDERING PHYSICIAN: KATE LUKE RESIDENT PROCEDURE(s): PELVS - PELVIS AP REASON: pain in the midline low pelvis at cocyx area ORDER NUMBER(s): [id number], ACCESSION NUMBER(s): [id number] EXAM: XY PELVIS AP CLINICAL INDICATION: pain in the midline low pelvis at cocyx area TECHNIQUE: XY PELVIS AP Comparison: None FINDINGS/IMPRESSION: There is no evidence of acute fracture or dislocation. The visualized joint space is well maintained. The alignment is anatomical. There is no radiopaque foreign body. ATED BY: HOWARD TOLENTINO MD DICTATED DATE/TIME: 01/01/25545 SIGNED BY: HOWARD TOLENTINO MD SIGNED DATE/TIME: 01/01/25 0546 CC: [facility] [id number] [place] [address] Ph: [phone] DIAGNOSTIC IMAGING Diagnostic Imaging Report : [id number] Signed PATIENT: JACKIE DAVIS ACCT: [id number] UNIT: [id number] : 1950 [facility] AGE / SEX: 74 / F ADM STATUS: ADM IN SERVICE 1218 ORDERING PHYSICIAN: BELL MUNOZ MD PROCEDURE(s): MSL - LUMBAR SPINE WO CONTRAST REASON: Pain ORDER NUMBER(s): [id number], ACCESSION NUMBER(s): [id number] PROCEDURE: MRI LUMBAR SPINE WO CONTRAST INDICATION: Pain Exam Date: 01/01/2025 01:20 PM COMPARISON: None TECHNIQUE: MRI lumbar spine without intravenous contrast. FINDINGS: Grade 1 anterolisthesis of L5 on S1 with likely bilateral pars defects. There are degenerative endplate changes including modic endplate changes with anterior and lateral osteophytes throughout the lumbar spine. The visualized distal spinal cord and conus medullaris are within normal limits. The conus medullaris appears to terminate within normal limits. The visualized retroperitoneal and paraspinal soft tissues are unremarkable. The following axial levels are detailed below: T12-L1: Unremarkable. L1-L2: There is a mild circumferential disc bulge. No significant central canal or neuroforaminal stenosis. L2-L3: There is a mild circumferential disc bulge. No significant central canal or neuroforaminal stenosis. L3-L4: There is a mild circumferential disc bulge. No significant central canal or neuroforaminal stenosis. L4-L5: There is a mild circumferential disc bulge. No significant central canal or neuroforaminal stenosis. L5-S1: There is a moderate circumferential disc bulge complicated by facet arthropathy associated with moderate bilateral neuroforaminal stenosis. No significant central canal stenosis. IMPRESSION: 1. Multilevel degenerative disease. Grade 1 spondylolisthesis L5 on S1 associated with moderate bilateral neural foraminal stenosis. No significant central canal stenosis. HS:Y ATED BY: EAGLE PHAN MD DICTATED DATE/TIME: 01/01/251408 SIGNED BY: EAGLE PHAN MD SIGNED DATE/TIME: 01/01/25 140 CC: Condition at Discharge: Guarded Final Diagnosis/Problems List Lumbar radiculopathy Lumbar multilevel degenerative disease Diabetes mellitus, A1C 7.2 Arthritis Osteoporosis Hypertension Hypercholesterolemia Lactic acidosis due to dehydration Discharge Disposition: Home Discharge Instruct/Medications Diet: Regular Activity: No Restrictions, As Tolerated Follow Up/Referral: fu with pcp in 1 week Medications: continue meds as prescribed Discharge Statement: "Patient was advised to return to the ER or call 911 if any headaches, dizziness, shortness of breath, chest pain, abdominal pain, bleeding, fevers, or worsening of medical condition. Patient was counseled about treatment plan, medications, possible side effects, patientverbalized understanding. All questions were answered to the best of my ability. This discharge took greater then 30 minutes in planning, reviewing documentation, counseling the patient, and discussing with other team members." ASSESSMENT ASSESSMENT Assessment LUMBALGIA Date of Service: Jan 01, 2025 Billing Provider: BELL MUNOZ MD Common Visit Codes: 42905-ZDW/OBS DISCH DAY >30min GISELL DILLARD RESIDENT Jan 01, 2025 20:38 BELL MUNOZ MD Jan 03, 2025 08:59
== END 2025-01-01 17:11 | disposition home or self-care (01) | DRG 552 ==
LOC: ER 16:34 → OVERFLOW 01-01 02:19 → TELE-WESTW 01-01 02:21
PROVIDERS: ADMIT Internal Medicine; ATTEND Internal Medicine
DX: M54.16 Radiculopathy, lumbar region (principal); E87.20 Acidosis, unspecified; E11.9 Type 2 diabetes mellitus without complications; M81.0 Age-related osteoporosis without current pathological fracture; E78.00 Pure hypercholesterolemia, unspecified; M19.09 Primary osteoarthritis, other specified site; I10 Essential (primary) hypertension; Z79.899 Other long term (current) drug therapy
CPT/HCPCS: 36415; 72131; 72148; 72170; 80053; 81001; 82550; 82962; 83036; 83605; 83690; 84100; 84443; 85025; 85379; 85652; 86141; 96372; 97163; G0378; J1100; J1815; J1885

== ENCOUNTER → 2025-02-26 | Outpatient (CLI) | payer MEDICAID ==
[~2025-02-26] MED LIST changes: +CEL100T PO; +ERGO1CAP23 PO; +ESCI10TA PO; +FENO145T27 PO; +MELO15TA29 PO; +NAPR220C PO; +TRAZ-227 PO
[2025-02-26 07:18] LABS: Urine Bacteria None Seen /hpf (None Seen)
[2025-02-26 07:39] LABS: Basophils # (auto) 0 10 ^3/uL (0-0.2); Basophils % (auto) 0.7 % (0.0-2.0); Eosinophils # (auto) 0.1 10 ^3/uL (0-0.8); Eosinophils % (auto) 1.6 % (0.0-7.0); Hematocrit 40.1 % (36.0-46.0); Hemoglobin 14.1 g/dL (12.2-16.2); Lymphocytes # (auto) 2.3 10 ^3/uL (0.4-5.4); Lymphocytes % (auto) 43.7 % (10.0-50.0); Mean Corpuscular Hemoglobin 31.7 pg (28.0-32.0); Mean Corpuscular Hgb Conc. 35.1 g/dL (32.0-36.0); Mean Corpuscular Volume 90.4 fL (80.0-100.0); Monocytes # (auto) 0.3 10 ^3/uL (0-1.3); Monocytes % (auto) 6.2 % (0.0-12.0); Neutrophils # (auto) 2.5 10 ^3/uL (1.6-8.6); Neutrophils % (auto) 47.8 % (37.0-80.0); Platelet Count (auto) 222 10^3/uL (140-450); Red Blood Cells 4.43 10^6/uL (4.0-5.20); Red Cell Distribution Width 12.7 % (11.8-14.3); White Blood Cell 5.3 10^3/uL (4.4-10.8)
[2025-02-26 07:58] LABS: Urine Blood Negative /uL (Negative); Urine Clarity Clear (Clear); Urine Color Light-Yellow (Yellow); Urine Protein, UAD Negative (Negative); Urine Specific Gravity 1.013 (1.001-1.035); Urine Squamous Epithelial Cell FEW /hpf (<5); Urine Urobilinogen Normal (Negative)
[2025-02-26 08:11] LABS: Urine WBC < 1 /HPF (0-5)
[2025-02-26 08:23] LABS: Alanine Aminotransferase 25 U/L (7-40); Albumin 4.5 g/dL (3.2-4.8); Alkaline Phosphatase 64 U/L (46-116); Anion Gap 10 (5-15); Aspartate Aminotransferase 20 U/L (13-40); Blood Urea Nitrogen 12 mg/dL (9-23); Calcium 10.2 mg/dL (8.7-10.4); Carbon Dioxide 29 mmol/L (20-31); Chloride 104 mmol/L (98-107); LDL Cholesterol 69 mg/dL (< 100); Potassium 4.1 mmol/L (3.5-5.1); Sodium 143 mmol/L (136-145); Total Protein 6.8 g/dL (5.7-8.2)
[2025-02-26 08:24] LABS: Bilirubin, Total 0.5 mg/dL (0.2-1.0); Cholesterol 166 mg/dL (< 200); HDL Cholesterol 46 mg/dL (40-59)
[2025-02-26 08:29] LABS: Glucose 126 mg/dL (74-106); Triglycerides 289 mg/dL (< 150)
== END | disposition home or self-care (01) ==
LOC: LAB 07:08
PROVIDERS: ATTEND Student in an Organized Health Care Education/Training Program
DX: I10 Essential (primary) hypertension (principal); E11.9 Type 2 diabetes mellitus without complications; E78.5 Hyperlipidemia, unspecified; E03.8 Other specified hypothyroidism
CPT/HCPCS: 36415; 80053; 80061; 81001; 83036; 84439; 84443; 85025